=== PATIENT | male | born 1955 | race Caucasian/White ===

== ENCOUNTER → 2018-10-20 | Outpatient (REF) | payer OTHER | LOC: M SFHCPLAZ 09:47 | PROVIDERS: ATTEND Dermatology | DX: L57.0 Actinic keratosis (principal) ==

== ENCOUNTER → 2024-03-29 | Outpatient (REF) | payer OTHER | LOC: M SFHCDERM 17:45 | PROVIDERS: ATTEND Physician Assistant | DX: L82.0 Inflamed seborrheic keratosis (principal) ==